=== PATIENT | male | born 1935 | race Caucasian/White ===

== ENCOUNTER 2020-01-22 08:55 | Inpatient (IN) | payer OTHER, SELFPAY ==
[~2020-01-22] VITALS: Ht 180.3 cm; Wt 79.4 kg
[~2020-01-22 08:55] MED LIST: ASPI-524 PO; BENZ-16 PO; CLINDAMYCIN 600 mg/50mL D5W 50 ML IV ONE; DONE10TA44 PO; DOXY100T2 PO; GABA-531 PO; LEVO75TA7 PO; TRAM50TA92 PO; TROS60CA3 PO
[2020-01-22] MEDS ORDERED: POLYMYXIN 500,000/BACIT.10,000 UNITS in NS IRR 1 L IR ONE (11:09)
[2020-01-22] MEDS ORDERED: MEPERIDINE HCL/PF 25 MG/ML DISP.SYRIN IVP PRN (12:15)
[2020-01-22] MEDS ORDERED: LABETALOL 100 MG/ 20ML VIAL IVP PRN (12:15)
[2020-01-22] MEDS ORDERED: ONDANSETRON HCL 4 MG/2 ML VIAL IVP PRN (12:15)
[2020-01-22] MEDS ORDERED: LR 1,000 ML IV SCH (12:15)
[2020-01-22] MEDS ORDERED: hydrALAZINE HCL 20 MG/ML VIAL IVP PRN (12:15)
[2020-01-22] MEDS ORDERED: HYDROmorphone 1 MG INJ. 1 MG/ML AMPUL IVP PRN ×3 (12:15→12:45)
[2020-01-22] MEDS ORDERED: HYDROcodone/ACETAMIN 5-325 MG TAB (NORCO/ VICODIN) PO PRN ×2 (12:45)
[2020-01-22] MEDS ORDERED: HYDROcodone/ACETAMIN 5-325 MG TAB (NORCO/ VICODIN) ONE ×2 (14:24→18:34)
[2020-01-22] MEDS ORDERED: HYDROmorphone 1 MG INJ. 1 MG/ML AMPUL ONE (15:44)
[2020-01-22 18:57] VITALS: BP_SYST 146
--- NOTE | 2020-01-22 19:20 | NUR ---
Received report from day shift nurse. Pt is fully awake and lying comfortably in bed without any distress noted. Right lower abdominal dressing is dry and intact. IVF of LR is infusing well in LW without any signs of infiltration. Fall and safety precautions are in place.
[2020-01-22 20:00] VITALS: BP_SYST 115
--- NOTE | 2020-01-22 20:57 | NUR ---
New orders obtained from Dr. Ulloa regarding home medications and IVF clarification.
[2020-01-22] MEDS ORDERED: BENZONATATE 100 MG CAPSULE (TESSALON) PO PRN (21:00)
[2020-01-22] MEDS ORDERED: traMADol HCL HCL 50 MG TABLET (ULTRAM) PO PRN (21:00)
[2020-01-22] MEDS: GABAPENTIN 300 MG CAPSULE PO SCH (21:50)
[2020-01-22] MEDS: DONEPEZIL HCL 5 MG TABLET (ARICEPT) PO SCH (21:50)
[2020-01-22] MEDS: D5/0.45 NS 1,000 ML IV SCH (21:51)
--- NOTE | 2020-01-22 22:04 | NUR ---
Tramadol 50mg was given po per pt's request for c/o 03/22 abdominal incisional pain. Pt was instructed to call for assistance as needed and before getting out of bed if he feels dizzy or drowsy to prevent falling and sustaining injuries. Pt verbalized understanding. Fall and safety precautions are in place. Call light is with pt and bed alarm is on. Bed is in the lowest and locked positions. Addendum: 01/23/20 at 0237 by Coral Shaffer RN RLQ abdominal dressing is dry and intact.
--- NOTE | 2020-01-22 22:30 | NUR ---
Pt was instructed to use Incentive Spirometer (IS) 10x Q 1hr WA and the rationale for its usage. Pt verbalized understanding and was able to perform return demonstration. Pt's IS usage ranged from 500ml to 1000ml.
[2020-01-23 00:05] VITALS: BP_SYST 97
--- NOTE | 2020-01-23 00:30 | NUR ---
Pt is sleeping comfortably Addendum: 01/23/20 at 0236 by Coral Shaffer RN IVF of D5 1/2NS is infusing well at 100ml/hr in left wrist without any signs of infiltration. Call light is with pt and bed alarm is on.
--- NOTE | 2020-01-23 02:30 | NUR ---
Pt is sleeping in bed without any distress noted. IVF is infusing well in left wrist. Fall and safety precautions are in place.
--- NOTE | 2020-01-23 04:30 | NUR ---
Pt is asleep in bed. No acute distress noted at this time. IVF is infusing well in left wrist. Fall and safety precautions are in place.
[2020-01-23] MEDS: LEVOTHYROXINE SODIUM 0.075 MG TABLET PO SCH (05:43)
--- NOTE | 2020-01-23 06:50 | NUR ---
Pt is resting quietly in bed. No acute distress noted at this time. RLQ abdominal dressing is dry and intact. IVF is infusing well in LW. Fall and safety precautions are in place. Will endorse to day shift nurse.
--- NOTE | 2020-01-23 07:15 | NUR ---
OPENING NOTES PT AWAKE, ALERT, AND ORIENTED. NONLABORED BREATHING NOTED ON ROOM AIR, O2 AT 96%. PT DENIES PAIN AND SOB AT THIS TIME. SCDS ON AND IN PLACE. IV LINE INTACT AND PATENT, NO SIGNS OF INFILTRATION NOTED, FLUIDS RUNNING ORDERED. NO ACUTE DISTRESS NOTED. BED LOCKED AND IN LOWEST POSITION. ALL NEEDS MET. CALL LIGHT IN REACH. FALL AND ASPIRATION PRECAUTIONS IN PLACE. CONTINUE TO MONITOR.
[2020-01-23 08:00] VITALS: BP_SYST 115
[2020-01-23] MEDS: ASPIRIN 81 MG TAB.CHEW PO SCH (08:48)
[2020-01-23] MEDS: GABAPENTIN 300 MG CAPSULE PO SCH ×3 (08:48→20:14)
[2020-01-23] MEDS: D5/0.45 NS 1,000 ML IV SCH ×2 (08:48→17:02)
[2020-01-23] MEDS ORDERED: SODIUM PHOSPHATE,MONO-DIBASIC 133 ML ENEMA RC ONE (09:00)
[2020-01-23] MEDS ORDERED: BISACODYL 10 MG/SUPPOSITORY RC ONE ×2 (09:00→13:15)
--- NOTE | 2020-01-23 09:00 | NUR ---
ROUTINE MEDS ROUTINE MEDS ADMINISTERED ORDERED PER MD, EDUCATION GIVEN, TOLERATED WELL. CONTINUE TO MONITOR.
--- NOTE | 2020-01-23 10:30 | NUR ---
ADMINISTERED DULCOLAX ORDERED WILL CHECK IN ONE HOUR TO SEE IF PT HAD BM. CONTINUE TO MONITOR.
[2020-01-23 11:26] LABS: ANION GAP 4 (5-15); CHLORIDE 102 mmol/L (98-107); CREATININE 1.03 mg/dL (0.55-1.30); GLUCOSE 125 mg/dL (70-99); POTASSIUM 4.1 mmol/L (3.5-5.1); SODIUM SERUM 136 mmol/L (136-145); UREA NITROGEN, BLOOD 7 mg/dL (8-21)
[2020-01-23 11:28] LABS: BASOPHILS % (AUTO) 0.2 % (0.0-2.0); EOSINOPHILS % (AUTO) 0.2 % (0.0-4.0); HEMOGLOBIN 13.5 g/dL (14.0-18.0); LYMPHOCYTES # (AUTO) 0.6 K/uL (1.0-5.5); LYMPHOCYTES % (AUTO) 7.9 % (20.5-51.5); MEAN CORPUSCULAR HEMOGLOBIN 30 pg (27-31); MEAN CORPUSCULAR HGB CONC 33 % (32-36); MEAN CORPUSCULAR VOLUME 91 fL (79.0-98.0); MONOCYTES # (AUTO) 0.7 K/uL (0.0-1.0); MONOCYTES % (AUTO) 9.2 % (1.7-9.3); NEUTROPHILS # (AUTO) 6.5 K/uL (1.8-7.7); NEUTROPHILS % (AUTO) 82.5 % (40.0-70.0); PLATELET COUNT (AUTO) 191 K/uL (130-430); WHITE BLOOD COUNT (AUTO) 7.9 K/uL (4.8-10.8)
[2020-01-23 11:32] LABS: ALANINE AMINOTRANSFERASE 28 U/L (12-78); ALBUMIN 2.6 g/dL (3.4-4.8); ASPARTATE AMINOTRANSFERASE 16 U/L (10-37); TOTAL BILIRUBIN 0.7 mg/dL (0.0-1.0)
--- NOTE | 2020-01-23 11:40 | NUR ---
PT HAD SMALL BOWEL MOVEMENT. WILL CONTINUE TO MONITOR.
[2020-01-23 12:28] VITALS: BP_SYST 138
[2020-01-23] MEDS ORDERED: BUPIVACAINE /PF 0.25% 30 ML VIAL INJ ONE (12:56)
[2020-01-23] MEDS ORDERED: ROCURONIUM BROMIDE 10 MG/ML (ZEMURON) ONE (12:56)
[2020-01-23] MEDS ORDERED: fentaNYL CITRATE/PF 100 MCG/2 ML AMP ONE (12:56)
[2020-01-23] MEDS ORDERED: MIDAZOLAM HCL 5 MG/ML VIAL (VERSED) IV ONE (12:56)
[2020-01-23] MEDS ORDERED: LR 1,000 ML IV.SOLN IV ONE (12:56)
[2020-01-23] MEDS ORDERED: ISOFLURANE 15 MIN GAS INH ONE (12:56)
[2020-01-23] MEDS ORDERED: SUGAMMADEX SODIUM 200 MG/2 ML VIAL IV ONE (12:56)
[2020-01-23] MEDS ORDERED: ONDANSETRON HCL 4 MG/2 ML VIAL ONE (12:56)
[2020-01-23] MEDS ORDERED: PROPOFOL 200MG/ 20ML VIAL (DIPRIVAN) IV ONE (12:56)
--- NOTE | 2020-01-23 13:30 | NUR ---
PT HAD NO BM, WILL ADMINISTER ANOTHER DULCOLAX ORDERED PER MD Addendum: 01/23/20 at 1927 by Nini Groves RN CLARIFICATION- PT HAD NO BOWEL MOVEMENT SINCE THE LAST SMALL BM.
--- NOTE | 2020-01-23 14:30 | NUR ---
PT HAD ANOTHER SMALL BM, WILL CONTINUE TO MONITOR IF PT HAS MORE BOWEL MOVEMENTS.
--- NOTE | 2020-01-23 15:07 | NUR ---
PT HAD NO ADDITIONAL BM SINCE LAST ONE, WILL ADMINISTER FLEET ENEMA ORDERED PER MD SEEN IN ADDITIONAL NOTES. WILL MONITOR.
--- NOTE | 2020-01-23 16:00 | NUR ---
PT HAD ANOTHER BM, MODERATE SIZE. ALL NEEDS MET. CALL LIGHT IN REACH. CONTINUE TO MONITOR.
[2020-01-23 16:30] VITALS: BP_SYST 141
--- NOTE | 2020-01-23 17:02 | NUR ---
ADMINISTERED FLUIDS ORDERED PER MD, TOLERATED WELL. ALL NEEDS MET. CONTINUE TO MONITOR.
--- NOTE | 2020-01-23 18:45 | NUR ---
CLOSING NOTES PT AWAKE, ALERT, AND ORIENTED. WATCHING TELEVISION IN BED. NONLABORED BREATHING NOTED NO ROOM AIR. PT DENIES PAIN AND SOB AT THIS TIME. IV LINE INTACT AND PATENT, NO SIGNS OF INFILTRATION NOTED. PT CLEAN AND DRY. NO ACUTE DISTRESS NOTED. ALL NEEDS MET. CALL LIGHT IN REACH. FALL AND ASPIRATION PRECAUTIONS IN PLACE. WILL ENDORSE TO NOC NURSE.
--- NOTE | 2020-01-23 19:30 | NUR ---
OPENING NOTES RECEIVED SBAR REPORT FROM DAY SHIFT RN. PT RESTING IN BED, ALERT & ORIENTED X3. VSS. O2 SAT 96%. NONLABORED BREATHING. PT LETICIA ANY PAIN AT THIS TIME. BED LOCKED IN LOWEST LEVEL. BED ALARM ON. CALL LIGHT WITHIN REACH. SAFETY AND FALL PRECAUTIONS MAINTAINED. WILL CONTINUE TO MONITOR.
[2020-01-23 20:00] VITALS: BP_SYST 115
[2020-01-23] MEDS: DONEPEZIL HCL 5 MG TABLET (ARICEPT) PO SCH (20:14)
--- NOTE | 2020-01-23 20:14 | NUR ---
MEDICATION PASS SCHEDULED MEDICATIONS ADMINISTERED ORDERED. DISCUSSED MEDICATIONS ACTION AND POTENTIAL SIDE EFFECTS. PT VERBALIZED UNDERSTANDING. IVF RUNNING ORDERED RATE. IV INTACT, PATENT. PT DENIES ANY PAIN AT THIS TIME. BREATHING UNLABORED TO ROOM AIR. CALL LIGHT WITHIN REACH. BED ALARM ON, LOCKED IN LOWEST LEVEL. SAFETY, FALL, AND ASPIRATION PRECAUTIONS IN PLACE. WILL CONTINUE TO MONITOR.
--- NOTE | 2020-01-23 22:30 | NUR ---
RN ROUNDS PT RESTING IN BED WITH EYES CLOSED, LETICIA ANY PAIN. BREATHING UNLABORED TO ROOM AIR. IVF RUNNING ORDERED RATE. NO SIGNS OF INFILTRATION NOTED. CALL LIGHT WITHIN REACH. BED ALARM ON, LOCKED IN LOW. SAFETY AND FALL PRECAUTIONS IN PLACE. WILL CONTINUE TO MONITOR.
[2020-01-24 00:03] VITALS: BP_SYST 132
--- NOTE | 2020-01-24 00:42 | NUR ---
RESTING PT RESTING IN BED, LETICIA PAIN. BREATHING IS EVEN AND UNLABORED TO ROOM AIR. ABDOMINAL DRESSING DRY AND INTACT. IVF RUNNING ORDERED RATE. PT TOLERATING WELL. CALL LIGHT WITHIN REACH. SAFETY AND FALL PRECAUTION IN PLACE. WILL MONITOR.
--- NOTE | 2020-01-24 02:57 | NUR ---
RN ROUNDS ASSISTED PT TO RESTROOM. PT STATED THAT HE WAS GOING TO HAVE BOWEL MOVEMENT BUT HE DIDN'T. PT BACK TO BED SAFELY, DENIES ANY PAIN. BED ALARM ON, LOCKED IN LOWEST LEVEL. CALL LIGHT WITHIN REACH. SIDE RAILS X2. SAFETY AND FALL PRECAUTIONS MAINTAINED. WILL CONTINUE TO MONITOR.
--- NOTE | 2020-01-24 05:00 | NUR ---
RESTING PT RESTING IN BED, LETICIA PAIN. BREATHING IS EVEN AND UNLABORED TO ROOM AIR. IVF RUNNING ORDERED RATE. PT TOLERATING WELL. CALL LIGHT WITHIN REACH. SAFETY AND FALL PRECAUTION IN PLACE. WILL MONITOR.
[2020-01-24] MEDS: LEVOTHYROXINE SODIUM 0.075 MG TABLET PO SCH (06:18)
[2020-01-24] MEDS: D5/0.45 NS 1,000 ML IV SCH (06:19)
--- NOTE | 2020-01-24 06:52 | NUR ---
CLOSING NOTES PT RESTING IN BED. NONLABORED BREATHING. PT LETICIA ANY PAIN AT THIS TIME. BED LOCKED IN LOWEST LEVEL. BED ALARM ON. CALL LIGHT WITHIN REACH. SAFETY AND FALL PRECAUTIONS MAINTAINED. WILL CONTINUE TO MONITOR UNTIL ENDORSE TO DAY SHIFT RN.
--- NOTE | 2020-01-24 07:15 | NUR ---
OPENING NOTES PT AWAKE, ALERT, AND ORIENTED. NONLABORED BREATHING NOTED ON ROOM AIR, O2 AT 95%. PT DENIES PAIN AND SOB AT THIS TIME. IV LINE INTACT AND PATENT, NO SIGNS OF INFILTRATION NOTED, FLUIDS RUNNING TOLERATING WELL. SCDS ON AND IN PLACE. NO ACUTE DISTRESS NOTED. ALL NEEDS MET. BED LOCKED AND IN LOWEST POSITION. BED ALARM ON . FALL AND ASPIRATION PRECAUTIONS IN PLACE. CONTINUE TO MONITOR.
--- NOTE | 2020-01-24 07:50 | NUR ---
ASSISTED PT TO BATHROOM, TOLERATED WELL. VERBALIZED TO PT TO USE CALL LIGHT WHEN DONE, PT VERBALIZED UNDERSTANDING.
[2020-01-24 08:00] VITALS: BP_SYST 133
[2020-01-24] MEDS: GABAPENTIN 300 MG CAPSULE PO SCH (08:02)
[2020-01-24] MEDS: ASPIRIN 81 MG TAB.CHEW PO SCH (08:02)
--- NOTE | 2020-01-24 08:05 | NUR ---
ROUTINE MEDS ASSISTED PT BACK TO BED. TOLERATED WELL. ADMINISTERED ROUTINE MEDS ORDERED PER MD, EDUCATION GIVEN, TOLERATED WELL. CALL LIGHT IN REACH. CONTINUE TO MONITOR.
[2020-01-24] MEDS ORDERED: BISACODYL 10 MG/SUPPOSITORY RC ONE ×2 (08:30→10:15)
--- NOTE | 2020-01-24 09:09 | NUR ---
ADMINISTERED BISACODYL, EDUCATION GIVEN, TOLERATED WELL. WILL MONITOR IN AN HOUR FOR BM
--- NOTE | 2020-01-24 10:15 | NUR ---
PT HAD NO BM, WILL ADMINISTER BISACODYL ONCE MORE ORDERED PER MD.
--- NOTE | 2020-01-24 10:35 | NUR ---
ADMINISTERED BISACODYL ORDERED PER MD, EDUCATION GIVEN, TOLERATED WELL. WILL MONITOR.
--- NOTE | 2020-01-24 11:45 | NUR ---
PT HAD BOWEL MOVEMENT, PT OK TO D/C PER MD ORDERS.
[2020-01-24 11:47] VITALS: BP_SYST 133
[2020-01-24 12:39] VITALS: BP_SYST 111
--- NOTE | 2020-01-24 13:05 | NUR ---
D/C Patient Patient given medication reconciliation form and D/C instructions. Exit Care provided. Patient verbalized understanding. MD discussed with patient the results and treatment provided. Ambulatory with steady gait for discharge to home. Pt has walker at home. Patient in stable condition, ID band removed. IV catheter removed, intact and dressing applied, no active bleeding. Patient educated on pain management. All belongings sent with patient.
--- NOTE | 2020-01-25 15:55 | NUR ---
Discharge Follow Up Phone Call Phoned patient, , and spoke with patient's , Suyapa. She stated that patient was improving and currently walking around the block. She was unsure if he had made his follow up appointment yet. She will check with him when he returns home and assure the appointment is made. No other questions or concerns.
== END 2020-01-24 13:04 | disposition home or self-care (01) | DRG 353 ==
LOC: SDS 08:55 → SMU 08:55 → STU 18:45 → SMU 01-23 09:02 → SDS 01-23 13:54
PROVIDERS: ADMIT Colon & Rectal Surgery; ATTEND Colon & Rectal Surgery
PROC: 0WUF0JZ Supplement Abdominal Wall with Synthetic Substitute, Open Approach (ICD-10-PCS; principal; 2020-01-23)
DX: K43.0 Incisional hernia with obstruction, without gangrene (principal); E43 Unspecified severe protein-calorie malnutrition; E03.9 Hypothyroidism, unspecified; I48.91 Unspecified atrial fibrillation; Z85.46 Personal history of malignant neoplasm of prostate; Z88.1 Allergy status to other antibiotic agents; Z88.0 Allergy status to penicillin; Z91.018 Allergy to other foods; Z03.818 Encounter for observation for suspected exposure to other biological agents ruled out
CPT/HCPCS: 36415; 80053; 85025; 88302; 97110-GP; 97116-GP; 97530-GP; C1781; C9399; J1170; J2250; J2405; J2704; J3010; J3490; J7120; U0002

== ENCOUNTER 2021-04-09 12:30 | Emergency (ER) | payer OTHER, SELFPAY ==
[~2021-04-09] VITALS: Ht 177.8 cm; Wt 81.6 kg
[~2021-04-09 12:30] MED LIST changes: -CLINDAMYCIN 600 mg/50mL D5W 50 ML IV ONE
[2021-04-09 13:00] VITALS: BP_SYST 122
[2021-04-09 13:46] LABS: BASOPHILS % (AUTO) 0.5 % (0.0-2.0); EOSINOPHILS # (AUTO) 0.1 K/uL (0.0-0.4); EOSINOPHILS % (AUTO) 1.7 % (0.0-4.0); HEMATOCRIT 38.4 % (36-54); HEMOGLOBIN 12.7 g/dL (14.0-18.0); LYMPHOCYTES # (AUTO) 1.3 K/uL (1.0-5.5); LYMPHOCYTES % (AUTO) 22.9 % (20.5-51.5); MEAN CORPUSCULAR HEMOGLOBIN 31 pg (27-31); MEAN CORPUSCULAR HGB CONC 33 % (32-36); MEAN CORPUSCULAR VOLUME 93 fL (79.0-98.0); MONOCYTES # (AUTO) 0.5 K/uL (0.0-1.0); MONOCYTES % (AUTO) 8.3 % (1.7-9.3); NEUTROPHILS # (AUTO) 3.7 K/uL (1.8-7.7); NEUTROPHILS % (AUTO) 66.6 % (40.0-70.0); PLATELET COUNT (AUTO) 194 K/uL (130-430); RED BLOOD CELL COUNT(AUTO) 4.14 MIL/uL (4.2-6.2); RED CELL DISTRIBUTION WIDTH 13.7 % (9.0-15.0); WHITE BLOOD COUNT (AUTO) 5.5 K/uL (4.8-10.8)
[2021-04-09 14:07] LABS: ANION GAP 6 (5-15); CALCIUM 8.7 mg/dL (8.4-11.0); CHLORIDE 110 mmol/L (98-107); CREATININE 0.94 mg/dL (0.55-1.30); GLUCOSE 118 mg/dL (70-99); POTASSIUM 4.1 mmol/L (3.5-5.1); SODIUM SERUM 144 mmol/L (136-145); UREA NITROGEN, BLOOD 21 mg/dL (8-21)
[2021-04-09 14:15] LABS: ALANINE AMINOTRANSFERASE 25 U/L (12-78); ALBUMIN 2.9 g/dL (3.4-4.8); ASPARTATE AMINOTRANSFERASE 16 U/L (10-37); TOTAL BILIRUBIN 0.2 mg/dL (0.0-1.0)
[2021-04-09 17:11] LABS: BILIRUBIN,URINE NEGATIVE (NEGATIVE); BLOOD, URINE NEGATIVE (NEGATIVE); CLARITY/URINE CLEAR (CLEAR); COLOR,URINE YELLOW (YELLOW); GLUCOSE,URINE NEGATIVE (NEGATIVE); KETONES,URINE NEGATIVE (NEGATIVE); LEUKOCYTE ESTERASE ,URINE NEGATIVE (NEGATIVE); NITRITE, URINE NEGATIVE (NEGATIVE); PROTEIN URINE NEGATIVE (NEGATIVE); UROBILINOGEN,URINE 0.2 (0.2-1.0)
[2021-04-09 18:05] VITALS: BP_SYST 129
== END 2021-04-09 18:05 | disposition home or self-care (01) ==
LOC: SED 12:30
DX: R42 Dizziness and giddiness (principal); I48.91 Unspecified atrial fibrillation; Z88.0 Allergy status to penicillin; Z88.1 Allergy status to other antibiotic agents; Z91.018 Allergy to other foods; Z79.899 Other long term (current) drug therapy
CPT/HCPCS: 36415; 70450-TC; 71045; 76376; 80053; 81003; 84484; 85025; 93005; 99285

== ENCOUNTER 2024-05-08 09:05 | Inpatient (IN) | payer OTHER ==
[~2024-05-08] VITALS: Ht 177.8 cm; Wt 76.2 kg
[2024-05-08 09:13] VITALS: BP_SYST 131; PULSE 105; RESP 24; TEMP 98; O2SAT 96
[2024-05-08 09:50] LABS: EOSINOPHILS % (AUTO) 0.4 % (0.0-4.0); HEMOGLOBIN 13.2 g/dL (14.0-18.0); LYMPHOCYTES # (AUTO) 0.8 K/uL (1.0-5.5); MEAN CORPUSCULAR HEMOGLOBIN 30 pg (27-31); NEUTROPHILS # (AUTO) 4.1 K/uL (1.8-7.7); WHITE BLOOD COUNT (AUTO) 5.8 K/uL (4.8-10.8)
[2024-05-08 09:53] LABS: BASOPHILS % (AUTO) 0.3 % (0.0-2.0); HEMATOCRIT 40.6 % (36-54); LYMPHOCYTES % (AUTO) 14.1 % (20.5-51.5); MEAN CORPUSCULAR HGB CONC 33 % (32-36); MEAN CORPUSCULAR VOLUME 93 fL (79.0-98.0); MONOCYTES # (AUTO) 0.8 K/uL (0.0-1.0); MONOCYTES % (AUTO) 14.4 % (1.7-9.3); NEUTROPHILS % (AUTO) 70.8 % (40.0-70.0); PLATELET COUNT (AUTO) 254 K/uL (130-430); RED BLOOD CELL COUNT(AUTO) 4.36 MIL/uL (4.2-6.2); RED CELL DISTRIBUTION WIDTH 13.6 % (9.0-15.0)
[2024-05-08 10:01] LABS: INR 0.9 (0.80-1.20); PROTHROMBIN TIME 9.9 SECS (9.5-12.5)
[2024-05-08 10:32] LABS: ALANINE AMINOTRANSFERASE 23 U/L (12-78); ALBUMIN 2.5 g/dL (3.4-4.8); ANION GAP 10 (5-15); ASPARTATE AMINOTRANSFERASE 11 U/L (10-37); BILIRUBIN,DIRECT 0.1 mg/dL (0.0-0.3); CALCIUM 8.3 mg/dL (8.4-11.0); CARBON DIOXIDE 23 mmol/L (23-29); CHLORIDE 103 mmol/L (98-107); CREATININE 0.99 mg/dL (0.55-1.30); GLUCOSE 139 mg/dL (74-106); POTASSIUM 4.1 mmol/L (3.5-5.1); SODIUM SERUM 136 mmol/L (136-145); TOTAL BILIRUBIN 0.2 mg/dL (0.0-1.0); TOTAL PROTEIN, SERUM 6.3 g/dL (6.4-8.3); UREA NITROGEN, BLOOD 14 mg/dL (8-21)
[2024-05-08] MEDS ORDERED: RIVA10TA PO (13:01)
[2024-05-08] MEDS: D5/0.45 NS 1,000 ML IV ONE (13:14)
[2024-05-08] MEDS: PANTOPRAZOLE SODIUM 40 MG/VIAL (PROTONIX) IVP ONE (13:20)
[2024-05-08] MEDS: metroNIDAZOLE 500 mg/NS 100 ML IV ONE (13:34)
[2024-05-08 16:10] VITALS: BP_SYST 124; PULSE 83; RESP 16; TEMP 96.9; O2SAT 97
[2024-05-08 20:15] VITALS: BP_SYST 103; PULSE 72; RESP 16; TEMP 97.8; O2SAT 96; O2SAT 97
[2024-05-09] VITALS (7 sets, daily range): BP systolic 110–148; PULSE 55–82; RESP 16–18; TEMP 97–98.8; O2SAT 95–98
[2024-05-09 02:42] LABS: BILIRUBIN,URINE NEGATIVE (NEGATIVE); BLOOD, URINE NEGATIVE (NEGATIVE); CLARITY/URINE CLEAR (CLEAR); COLOR,URINE YELLOW (YELLOW); GLUCOSE,URINE NEGATIVE (NEGATIVE); KETONES,URINE NEGATIVE (NEGATIVE); LEUKOCYTE ESTERASE ,URINE NEGATIVE (NEGATIVE); NITRITE, URINE NEGATIVE (NEGATIVE); PROTEIN URINE NEGATIVE (NEGATIVE); UROBILINOGEN,URINE 0.2 (0.2-1.0)
[2024-05-09] MEDS ORDERED: LORazepam 2 MG/ML VIAL IVP PRN (09:15)
[2024-05-09] MEDS ORDERED: NALOXONE HCL 0.4 MG/ML AMP (NARCAN) IVP PRN (09:15)
[2024-05-09] MEDS ORDERED: ONDANSETRON HCL 4 MG/2 ML VIAL IVP PRN (09:15)
[2024-05-09] MEDS ORDERED: MORPHINE 4 MG INJ. 4 MG/ML VIAL IVP PRN (09:15)
[2024-05-09] MEDS: D5/0.45 NS 1,000 ML IV SCH (10:30)
[2024-05-09 11:22] LABS: BASOPHILS % (AUTO) 0.7 % (0.0-2.0); EOSINOPHILS % (AUTO) 0.4 % (0.0-4.0); HEMATOCRIT 38.3 % (36-54); HEMOGLOBIN 12.6 g/dL (14.0-18.0); LYMPHOCYTES # (AUTO) 0.9 K/uL (1.0-5.5); MEAN CORPUSCULAR HEMOGLOBIN 30 pg (27-31); MEAN CORPUSCULAR HGB CONC 33 % (32-36); MEAN CORPUSCULAR VOLUME 93 fL (79.0-98.0); MONOCYTES # (AUTO) 0.7 K/uL (0.0-1.0); MONOCYTES % (AUTO) 14.6 % (1.7-9.3); NEUTROPHILS # (AUTO) 2.8 K/uL (1.8-7.7); NEUTROPHILS % (AUTO) 63.3 % (40.0-70.0); PLATELET COUNT (AUTO) 235 K/uL (130-430); RED BLOOD CELL COUNT(AUTO) 4.14 MIL/uL (4.2-6.2); RED CELL DISTRIBUTION WIDTH 13.5 % (9.0-15.0); WHITE BLOOD COUNT (AUTO) 4.5 K/uL (4.8-10.8)
[2024-05-09 11:32] LABS: ANION GAP 9 (5-15); CALCIUM 8.1 mg/dL (8.4-11.0); CARBON DIOXIDE 25 mmol/L (23-29); CHLORIDE 104 mmol/L (98-107); CREATININE 0.87 mg/dL (0.55-1.30); GLUCOSE 96 mg/dL (74-106); POTASSIUM 4.5 mmol/L (3.5-5.1); SODIUM SERUM 138 mmol/L (136-145); UREA NITROGEN, BLOOD 9 mg/dL (8-21)
[2024-05-09] MEDS: metroNIDAZOLE 500 mg/NS 100 ML IV SCH (15:03)
[2024-05-10] VITALS (7 sets, daily range): BP systolic 102–126; PULSE 61–76; RESP 12–16; TEMP 96.7–98.3; O2SAT 94–98
[2024-05-10 08:16] LABS: BASOPHILS % (AUTO) 0.7 % (0.0-2.0); EOSINOPHILS # (AUTO) 0.1 K/uL (0.0-0.4); EOSINOPHILS % (AUTO) 1.2 % (0.0-4.0); HEMATOCRIT 36.2 % (36-54); HEMOGLOBIN 12.1 g/dL (14.0-18.0); LYMPHOCYTES # (AUTO) 1.2 K/uL (1.0-5.5); LYMPHOCYTES % (AUTO) 25.8 % (20.5-51.5); MEAN CORPUSCULAR HEMOGLOBIN 31 pg (27-31); MEAN CORPUSCULAR HGB CONC 34 % (32-36); MEAN CORPUSCULAR VOLUME 92 fL (79.0-98.0); MONOCYTES # (AUTO) 0.7 K/uL (0.0-1.0); MONOCYTES % (AUTO) 14.6 % (1.7-9.3); NEUTROPHILS # (AUTO) 2.6 K/uL (1.8-7.7); NEUTROPHILS % (AUTO) 57.7 % (40.0-70.0); PLATELET COUNT (AUTO) 240 K/uL (130-430); RED BLOOD CELL COUNT(AUTO) 3.93 MIL/uL (4.2-6.2); RED CELL DISTRIBUTION WIDTH 13.5 % (9.0-15.0); WHITE BLOOD COUNT (AUTO) 4.5 K/uL (4.8-10.8)
[2024-05-10 08:42] LABS: ANION GAP 10 (5-15); CARBON DIOXIDE 24 mmol/L (23-29); CHLORIDE 106 mmol/L (98-107); CREATININE 0.89 mg/dL (0.55-1.30); GLUCOSE 104 mg/dL (74-106); POTASSIUM 3.9 mmol/L (3.5-5.1); SODIUM SERUM 140 mmol/L (136-145); UREA NITROGEN, BLOOD 8 mg/dL (8-21)
[2024-05-10] MEDS ORDERED: NALOXONE HCL 0.4 MG/ML AMP (NARCAN) IVP PRN ×2 (09:45)
[2024-05-10] MEDS ORDERED: HYDROcodone/ACETAMIN 5-325 MG TAB (NORCO/ VICODIN) PO PRN (09:45)
[2024-05-10] MEDS ORDERED: HYDROcodone/ACETAMIN 10-325 MG TAB PO PRN (09:45)
[2024-05-10] MEDS ORDERED: ACETAMINOPHEN 325 MG TABLET PO PRN (09:45)
[2024-05-11 00:06] VITALS: BP_SYST 123; PULSE 61; RESP 16; TEMP 97.8; O2SAT 96
[2024-05-11] MEDS: ACETAMINOPHEN 325 MG TABLET PO PRN (00:17)
[2024-05-11 07:11] LABS: BASOPHILS % (AUTO) 0.7 % (0.0-2.0); EOSINOPHILS # (AUTO) 0.1 K/uL (0.0-0.4); EOSINOPHILS % (AUTO) 1.4 % (0.0-4.0); HEMATOCRIT 37.4 % (36-54); HEMOGLOBIN 12.3 g/dL (14.0-18.0); LYMPHOCYTES % (AUTO) 25.7 % (20.5-51.5); MEAN CORPUSCULAR HEMOGLOBIN 30 pg (27-31); MEAN CORPUSCULAR HGB CONC 33 % (32-36); MEAN CORPUSCULAR VOLUME 92 fL (79.0-98.0); MONOCYTES # (AUTO) 0.6 K/uL (0.0-1.0); MONOCYTES % (AUTO) 15.5 % (1.7-9.3); NEUTROPHILS # (AUTO) 2.2 K/uL (1.8-7.7); NEUTROPHILS % (AUTO) 56.7 % (40.0-70.0); PLATELET COUNT (AUTO) 267 K/uL (130-430); RED BLOOD CELL COUNT(AUTO) 4.07 MIL/uL (4.2-6.2); RED CELL DISTRIBUTION WIDTH 13.7 % (9.0-15.0); WHITE BLOOD COUNT (AUTO) 3.9 K/uL (4.8-10.8)
[2024-05-11 07:25] LABS: ANION GAP 8 (5-15); CALCIUM 8.2 mg/dL (8.4-11.0); CARBON DIOXIDE 26 mmol/L (23-29); CHLORIDE 107 mmol/L (98-107); CREATININE 0.89 mg/dL (0.55-1.30); GLUCOSE 105 mg/dL (74-106); POTASSIUM 4.5 mmol/L (3.5-5.1); SODIUM SERUM 141 mmol/L (136-145); UREA NITROGEN, BLOOD 10 mg/dL (8-21)
[2024-05-11 08:01] LABS: ERYTHROCYTE SEDIMENTATION RATE 32 MM/HR (0-15)
[2024-05-11 08:46] VITALS: BP_SYST 124; PULSE 67; RESP 16; RESP 18; TEMP 97.3; O2SAT 96
[2024-05-11] MEDS ORDERED: LEVO-62 PO (09:10)
[2024-05-11] MEDS ORDERED: METR-154 PO (09:10)
[2024-05-11 12:52] VITALS: BP_SYST 115; PULSE 60; RESP 16; TEMP 97.7; O2SAT 96
[2024-05-11] MEDS: MORPHINE 2 MG/ML INJ. SYRINGE IVP PRN (14:04)
[2024-05-11] MEDS: NORMAL SALINE 5 ML DISP.SYRIN IVF SCH (14:23)
[2024-05-11 15:06] VITALS: BP_SYST 115; PULSE 60; RESP 18; TEMP 97.7; O2SAT 96
[2024-05-11 16:54] VITALS: BP_SYST 127; PULSE 97; RESP 16; TEMP 98.2; O2SAT 97
== END 2024-05-11 16:30 | disposition home health service (06) | DRG 377 ==
LOC: SED 09:05 → SMU 12:51
PROVIDERS: ADMIT Preventive Medicine Preventive Medicine/Occupational Environmental Medicine; ATTEND Preventive Medicine Preventive Medicine/Occupational Environmental Medicine
DX: K57.33 Diverticulitis of large intestine without perforation or abscess with bleeding (principal); E43 Unspecified severe protein-calorie malnutrition; D64.9 Anemia, unspecified; D72.819 Decreased white blood cell count, unspecified; E03.9 Hypothyroidism, unspecified; E83.52 Hypercalcemia; E83.51 Hypocalcemia; I48.91 Unspecified atrial fibrillation; K40.20 Bilateral inguinal hernia, without obstruction or gangrene, not specified as recurrent; M85.80 Other specified disorders of bone density and structure, unspecified site; N28.1 Cyst of kidney, acquired; Z90.49 Acquired absence of other specified parts of digestive tract; Z86.73 Personal history of transient ischemic attack (TIA), and cerebral infarction without residual deficits; Z85.46 Personal history of malignant neoplasm of prostate; Z79.899 Other long term (current) drug therapy; Z88.8 Allergy status to other drugs, medicaments and biological substances; Z88.0 Allergy status to penicillin; Z68.24 Body mass index [BMI] 24.0-24.9, adult
CPT/HCPCS: 36415; 80048; 80076; 81001; 81003; 82272; 85025; 85610; 85651; 87040; 87045-TC; 87046; 87230; 89055; 96365; 99285; J1956; J2270; J2470; J3490